=== PATIENT | female | born 1980 | race African-American/Black ===

== ENCOUNTER → 2017-07-09 | Outpatient (REF) | payer OTHER ==
[~2017-07-09] MED LIST: DITR1TAB PO; TYLE325T5 PO
[2017-07-09 19:48] LABS: BACTERIA, URINE SMALL AMOUNT; RBC, URINE 0-1 /hpf (0-3); SQUAMOUS EPITHELIAL CELL URINE SMALL AMOUNT /hpf (SMALL AMT)
[2017-07-09 19:51] LABS: HYALINE CAST, URINE NONE SEEN /lpf (0-1); MICROSCOPIC EXAM PERFORMED
== END ==
LOC: M SMT 16:57
PROVIDERS: ATTEND Specialist
DX: N39.41 Urge incontinence (principal)

== ENCOUNTER 2017-07-11 16:57 | Emergency (ER) | payer OTHER ==
[~2017-07-11] VITALS: Ht 167.6 cm; Wt 77.3 kg
[2017-07-11 16:58] VITALS: BP 142/77
[2017-07-11] MEDS ORDERED: DITR1TAB PO (17:24)
[2017-07-11] MEDS ORDERED: FLUORESCEIN OPHTH 1 MG STRIP OD ONE (17:45)
[2017-07-11] MEDS ORDERED: TETRACAINE 0.5% OPHTH SOLN 4ML OD ONE (17:45)
[2017-07-11] MEDS ORDERED: TYLE325T5 PO (18:16)
== END 2017-07-11 18:52 | disposition home or self-care (01) ==
LOC: M ED 16:57
DX: H11.31 Conjunctival hemorrhage, right eye (principal); N32.81 Overactive bladder; Z79.899 Other long term (current) drug therapy

== ENCOUNTER → 2017-10-06 | Outpatient (CLI) | payer OTHER ==
[2017-10-06 17:59] LABS: MEAN CORPUSCULAR HEMOGLOBIN 29.8 pg (27.0-33.0); MEAN CORPUSCULAR HGB CONC 33.3 g/dl (32.0-36.5); MEAN CORPUSCULAR VOLUME 89.3 fl (80.0-96.0); PLATELET COUNT, AUTOMATED 322 10^3/uL (150-450); RED BLOOD COUNT 4.03 10^6/uL (4.00-5.40); RED CELL DISTRIBUTION WIDTH 14.1 % (11.5-14.5)
[2017-10-06 18:00] LABS: CONTROL LINE UCG INT CTR LINE PRESENT; URINE PREG TEST NEGATIVE (NEGATIVE)
[2017-10-06 18:13] LABS: APPEARANCE, URINE HAZY (CLEAR); BACTERIA, URINE AUTO NEGATIVE (NEGATIVE); BILIRUBIN, URINE AUTO NEGATIVE (NEGATIVE); BLOOD, URINE BLOOD NEGATIVE (NEGATIVE); CALCIUM OXALATE CRYSTALS LARGE; COLOR, URINE YELLOW (YELLOW); GLUCOSE, URINE (UA) AUTO NEGATIVE (NEGATIVE); KETONE, URINE AUTO TRACE mg/dL (NEGATIVE); LEUKOCYTE ESTERASE, URINE AUTO NEGATIVE (NEGATIVE); MUCUS, URINE SMALL (NEGATIVE); NITRITE, URINE AUTO NEGATIVE (NEGATIVE); PROTEIN, URINE AUTO NEGATIVE (NEGATIVE); RBC, URINE AUTO 1 /HPF (0-3); SPECIFIC GRAVITY URINE AUTO 1.027 (1.002-1.035); SQUAMOUS EPITHELIAL CELL UR AU 0 /HPF (0-6); WBC, URINE AUTO 3 /HPF (0-3)
[2017-10-06 19:23] LABS: ALBUMIN 3.9 GM/DL (3.2-5.2); ALBUMIN/GLOBULIN RATIO 1.05 (1.00-1.93); ALKALINE PHOSPHATASE 78 U/L (45-117); ALT/SGPT 24 U/L (12-78); ANION GAP 7 MEQ/L (8-16); AST/SGOT 18 U/L (7-37); BILIRUBIN,TOTAL 0.5 MG/DL (0.2-1.0); BLOOD UREA NITROGEN 14 MG/DL (7-18); CALCIUM LEVEL 9.2 MG/DL (8.5-10.1); CARBON DIOXIDE LEVEL 30 MEQ/L (21-32); CHLORIDE LEVEL 105 MEQ/L (98-107); CREATININE FOR GFR 1.17 MG/DL (0.55-1.30); GLOMERULAR FILTRATION RATE > 60.0 (>60); GLUCOSE, FASTING 93 MG/DL (70-100); POTASSIUM SERUM 3.7 MEQ/L (3.5-5.1); SODIUM LEVEL 142 MEQ/L (136-145); TOTAL PROTEIN 7.6 GM/DL (6.4-8.2)
== END ==
LOC: M SMT 15:45
DX: Z01.818 Encounter for other preprocedural examination (principal); R30.1 Vesical tenesmus; R20.8 Other disturbances of skin sensation
CPT/HCPCS: 80053

== ENCOUNTER 2017-10-08 06:35 | Day surgery (SDC) | payer OTHER ==
[2017-10-08 07:02] LABS: CONTROL LINE UCG INT CTR LINE PRESENT; URINE PREG TEST NEGATIVE (NEGATIVE)
[2017-10-08] MEDS: LR 1,000 ML IV (07:05)
[2017-10-08] MEDS ORDERED: LIDOCAINE 2% INJ 100 MG/5 ML SDV (FOR ANES.) As Ordered (07:18)
[2017-10-08] MEDS ORDERED: fentaNYL 100 MCG/2 ML INJECTION (J3010) As Ordered (07:18)
[2017-10-08] MEDS ORDERED: PROPOFOL 200 MG/20 ML VIAL As Ordered ×2 (07:18→08:09)
[2017-10-08] MEDS ORDERED: MIDAZOLAM INJ 2 MG/2 ML VIAL (J2250) As Ordered (07:18)
[2017-10-08] MEDS ORDERED: ONDANSETRON 4MG/2ML VIAL (J2405) As Ordered (07:18)
[2017-10-08] MEDS ORDERED: dexameTHASONE 4 MG/ML 1ML VIAL (J1100) As Ordered (07:18)
[2017-10-08] MEDS: LIDOCAINE 2% 5ML JELLY UROJET As Ordered (07:20)
[2017-10-08] MEDS: LIDOCAINE 1% MDV 20ML VIAL As Ordered (07:36)
[2017-10-08] MEDS: LIDOCAINE 1% MDV INJ 50 ML VIAL As Ordered (07:40)
[2017-10-08] MEDS: BOTULINUM INJ 100 UNITS (J0585) As Ordered (07:56)
[2017-10-08] MEDS ORDERED: KETOROLAC 60 MG/2 ML VIAL (J1885) As Ordered (08:31)
[2017-10-08] MEDS ORDERED: LR 1,000 ML IV (09:00)
[2017-10-08] MEDS ORDERED: PERCOCET 5MG/325MG TAB PO (09:00)
[2017-10-08] MEDS ORDERED: ONDANSETRON 4MG/2ML VIAL (J2405) IV (09:00)
[2017-10-08] MEDS ORDERED: HYDROmorphone HCL 1 MG/ML SYRINGE (J1170) IV (09:00)
[2017-10-08] MEDS ORDERED: fentaNYL 100 MCG/2 ML INJECTION (J3010) IV (09:00)
== END 2017-10-08 11:30 | disposition home or self-care (01) ==
LOC: M SDC 06:35
DX: N30.11 Interstitial cystitis (chronic) with hematuria (principal); R35.0 Frequency of micturition; J45.909 Unspecified asthma, uncomplicated; G47.30 Sleep apnea, unspecified; Z79.51 Long term (current) use of inhaled steroids; Z79.899 Other long term (current) drug therapy
CPT/HCPCS: 52260

== ENCOUNTER 2017-10-14 09:00 | Emergency (ER) | payer OTHER ==
[2017-10-14] MEDS: ASPIRIN 81 MG CHEW TABLET PO (10:15)
[2017-10-14 10:43] LABS: BASO # 0.1 10^3/uL (0.0-0.2); EOS # 0.1 10^3/uL (0.0-0.50); IMMATURE GRANULOCYTE % 0.2 % (0-3.0); LYMPH # 1.9 10^3/uL (1.5-4.5); LYMPH % 37.5 % (24.0-44.0); MEAN CORPUSCULAR HEMOGLOBIN 29.7 pg (27.0-33.0); MEAN CORPUSCULAR HGB CONC 32.4 g/dl (32.0-36.5); MEAN CORPUSCULAR VOLUME 91.6 fl (80.0-96.0); MONO # 0.4 10^3/uL (0.0-0.8); NEUTROPHILS # 2.7 10^3/uL (1.8-7.7); NEUTROPHILS % 53.3 % (36.0-66.0); PLATELET COUNT, AUTOMATED 292 10^3/uL (150-450); RED BLOOD COUNT 4.04 10^6/uL (4.00-5.40); RED CELL DISTRIBUTION WIDTH 14.6 % (11.5-14.5); WHITE BLOOD COUNT 5.1 10^3/uL (4.0-10.0)
[2017-10-14 11:02] LABS: ALBUMIN 3.7 GM/DL (3.2-5.2); ALBUMIN/GLOBULIN RATIO 1.12 (1.00-1.93); ALKALINE PHOSPHATASE 68 U/L (45-117); ALT/SGPT 27 U/L (12-78); ANION GAP 5 MEQ/L (8-16); AST/SGOT 18 U/L (7-37); BILIRUBIN,DIRECT 0.1 MG/DL (0.0-0.2); BILIRUBIN,TOTAL 0.5 MG/DL (0.2-1.0); BLOOD UREA NITROGEN 10 MG/DL (7-18); CALCIUM LEVEL 8.5 MG/DL (8.5-10.1); CARBON DIOXIDE LEVEL 30 MEQ/L (21-32); CHLORIDE LEVEL 107 MEQ/L (98-107); CPK CREATINE PHOSPHOKINASE 141 U/L (26-192); GLOMERULAR FILTRATION RATE > 60.0 (>60); GLUCOSE, FASTING 80 MG/DL (70-100); NT-PRO BNP 92 PG/ML (<125); POTASSIUM SERUM 4.3 MEQ/L (3.5-5.1); SODIUM LEVEL 142 MEQ/L (136-145); TROPONIN I < 0.02 NG/ML (< 0.10)
[2017-10-14] MEDS ORDERED: ISOVUE-370 76% 100ML VIAL (Q9967) As Ordered (11:10)
[2017-10-14] MEDS: IPRATROPIUM 0.5MG/ALBUTEROL 2.5MG INH SOL UD 3ML (DUONEB)(J7620) NEB (12:00)
== END 2017-10-14 12:24 | disposition home or self-care (01) ==
LOC: M ED 09:00
DX: R07.9 Chest pain, unspecified (principal); R06.02 Shortness of breath; J45.909 Unspecified asthma, uncomplicated
CPT/HCPCS: Q9967

== ENCOUNTER 2019-01-26 08:09 | Outpatient (RCR) | payer OTHER ==
[~2019-01-26 08:09] MED LIST changes: +MACR100C43 PO; +OXYC1TAB23 PO; +PENT10CA; +VENTAER INH
== END 2019-01-29 ==
LOC: M PT 08:09
PROVIDERS: ATTEND Family Medicine
DX: R39.15 Urgency of urination (principal)

== ENCOUNTER 2019-02-17 08:00 | Outpatient (RCR) | payer OTHER | END 2019-03-01 | LOC: M PT 08:00 | PROVIDERS: ATTEND Family Medicine | DX: Z51.89 Encounter for other specified aftercare (principal); R39.15 Urgency of urination ==

== ENCOUNTER → 2020-04-29 | Outpatient (CLI) | payer OTHER ==
[2020-04-29 16:27] LABS: PLATELET COUNT, AUTOMATED 295 10^3/uL (150-450)
[2020-04-29 16:42] LABS: INR 1.03; PROTHROMBIN TIME 13.8 SECONDS (12.5-14.3)
[2020-04-29 16:43] LABS: PARTIAL THROMBOPLASTIN TIME 31.4 SECONDS (24.2-38.5)
[2020-04-29 16:48] LABS: HCG, SERUM QUALITATIVE NEGATIVE (NEGATIVE)
[2020-04-29 17:11] LABS: COLLAGEN EPINEPHRINE 149 SECONDS (74-162)
== END ==
LOC: M LAB 15:57
PROVIDERS: ATTEND Physician Assistant
DX: M47.812 Spondylosis without myelopathy or radiculopathy, cervical region (principal)

== ENCOUNTER → 2020-05-09 | Outpatient (REF) | payer OTHER ==
[2020-05-09 14:13] LABS: APPEARANCE, URINE CLEAR (CLEAR); BACTERIA, URINE AUTO NEGATIVE (NEGATIVE); BILIRUBIN, URINE AUTO NEGATIVE (NEGATIVE); BLOOD, URINE BLOOD NEGATIVE (NEGATIVE); COLOR, URINE YELLOW (YELLOW); GLUCOSE, URINE (UA) AUTO NEGATIVE (NEGATIVE); KETONE, URINE AUTO NEGATIVE (NEGATIVE); LEUKOCYTE ESTERASE, URINE AUTO NEGATIVE (NEGATIVE); NITRITE, URINE AUTO NEGATIVE (NEGATIVE); PROTEIN, URINE AUTO NEGATIVE (NEGATIVE); RBC, URINE AUTO 0 /HPF (0-3); SPECIFIC GRAVITY URINE AUTO 1.011 (1.002-1.035); SQUAMOUS EPITHELIAL CELL UR AU 1 /HPF (0-6); UROBILINOGEN, URINE AUTO 0.2 mg/dL (0.0-2.0); WBC, URINE AUTO 2 /HPF (0-3)
== END ==
LOC: M SMT 13:23
PROVIDERS: ATTEND Nurse Practitioner Family
DX: N39.41 Urge incontinence (principal)
CPT/HCPCS: 51798; 81001; 87086; G0463

== ENCOUNTER 2020-05-22 07:03 | Day surgery (SDC) | payer OTHER ==
[~2020-05-22] VITALS: Ht 167.6 cm; Wt 72.6 kg
[~2020-05-22 07:03] MED LIST changes: +BOTOX THERAPEUTIC 100 UNIT VIAL (J0585 PER 1 UNIT) XX ONE; +ceFAZolin SOD 2 GM in IV 1 EA IV ONE
[2020-05-22] MEDS ORDERED: LIDOCAINE 2% 100MG/5ML SDV (FOR ANES.) As Ordered ONE (07:56)
[2020-05-22] MEDS ORDERED: dexameTHASONE 4 MG/ML 1ML VIAL (J1100 PER 1MG) As Ordered ONE (07:56)
[2020-05-22] MEDS ORDERED: fentaNYL 100 MCG/2 ML INJECTION (J3010) As Ordered ONE (07:56)
[2020-05-22] MEDS ORDERED: ONDANSETRON 4MG/2ML VIAL As Ordered ONE (07:56)
[2020-05-22] MEDS ORDERED: propofoL 200 MG/20 ML VIAL As Ordered ONE (07:56)
[2020-05-22] MEDS ORDERED: MIDAZOLAM INJ 2MG/2ML VIAL (J2250 PER 1MG) As Ordered ONE (07:56)
[2020-05-22] MEDS ORDERED: BOTOX THERAPEUTIC 100 UNIT VIAL (J0585 PER 1 UNIT) As Ordered ONE (08:29)
[2020-05-22] MEDS ORDERED: LR 1,000 ML IV ONE (08:30)
[2020-05-22] MEDS ORDERED: LIDOCAINE 2% 5ML JELLY UROJET As Ordered ONE (08:30)
[2020-05-22] MEDS ORDERED: ACETAMINOPHEN 1000MG 100ML IV BTL (OFIRMEV) (J0131 PER 10MG) As Ordered ONE (08:53)
[2020-05-22] MEDS ORDERED: ONDANSETRON 4MG/2ML VIAL IV PRN (09:30)
[2020-05-22] MEDS ORDERED: oxyCODONE 5MG TAB PO PRN (09:30)
[2020-05-22] MEDS ORDERED: fentaNYL 100 MCG/2 ML INJECTION (J3010) IV PRN (09:30)
[2020-05-22] MEDS ORDERED: LR 1,000 ML IV SCH (09:30)
[2020-05-22 09:55] VITALS: BP 136/80
[2020-05-22] MEDS ORDERED: ACETAMINOPHEN TAB 650MG DOSE (2X325MG) PO PRN (10:30)
--- NOTE | 2020-05-22 14:22 | RO ---
DATE OF OPERATION: 05/22/2020 PREOPERATIVE DIAGNOSIS: Overactive bladder. POSTOPERATIVE DIAGNOSIS: Overactive bladder. PROCEDURE: Cystoscopy with bladder Botox injections. SURGEON: Lv Bradshaw MD ENT SURGEON: None. ANESTHESIA: MAC. OPERATIVE INDICATIONS: This is a 39-year-old female with overactive bladder and urge urinary incontinence. She has previously responded well to bladder Botox injections 100 units. She is brought back to the operating room today for another round of injections. DESCRIPTION OF PROCEDURE: The patient was brought to the operating room and MAC anesthesia was administered. Prophylactic antibiotics were infused. She was then placed in the dorsal lithotomy position and prepped and draped in usual sterile fashion. A rigid cystoscope was inserted into the urethral meatus and advanced into the bladder. The bladder was thoroughly examined and no abnormalities were seen. At this point a total of 100 units of Botox reconstituted in 10 mL of injectable saline was injected in several sites throughout the bladder. Approximately 20 sites were injected. Throughout the procedure I made sure not to inject directly into or on top of the ureteral orifices. Once done there was only a small amount of bleeding from injection sites. The bladder was emptied of all fluids and this marked the conclusion of the procedure. The patient was taken out of the dorsal lithotomy position, awakened from anesthesia and transported to the recovery room in stable condition. ESTIMATED BLOOD LOSS: 5 mL. COMPLICATIONS: None. SPECIMENS: None. PLAN: The patient will follow up in urology clinic in 2-3 weeks for postoperative visit to see how well the Botox is working for her. [facility]
== END 2020-05-22 10:20 | disposition home or self-care (01) ==
LOC: M SDC 07:03
PROVIDERS: ATTEND Urology
DX: N32.81 Overactive bladder (principal); N39.41 Urge incontinence; J45.909 Unspecified asthma, uncomplicated; G47.33 Obstructive sleep apnea (adult) (pediatric)
CPT/HCPCS: 52287; 81025; C1769; J0131; J0585; J0690; J1100; J2250; J2405; J3010

== ENCOUNTER 2020-12-03 12:59 | Emergency (ER) | payer OTHER ==
[~2020-12-03] VITALS: Ht 167.6 cm; Wt 75.0 kg
[~2020-12-03 12:59] MED LIST changes: -BOTOX THERAPEUTIC 100 UNIT VIAL (J0585 PER 1 UNIT) XX ONE; -ceFAZolin SOD 2 GM in IV 1 EA IV ONE
[2020-12-03] MEDS ORDERED: D31000TA2 PO (13:23)
[2020-12-03] MEDS ORDERED: METH36TA5 PO (13:23)
[2020-12-03] MEDS ORDERED: CYMB1CAP4 PO (13:23)
[2020-12-03] MEDS ORDERED: FLUO20CA22 PO (13:23)
[2020-12-03] MEDS ORDERED: DOXY100T PO (13:31)
[2020-12-03] MEDS ORDERED: TRAZ-257 PO (13:31)
[2020-12-03] MEDS ORDERED: AMIT25TA17 PO (13:31)
[2020-12-03] MEDS ORDERED: B-2100TA PO (13:31)
[2020-12-03] MEDS ORDERED: OMEG1CAP85 PO (13:31)
[2020-12-03] MEDS ORDERED: PRAZ1CAP PO (13:31)
[2020-12-03] MEDS ORDERED: TOPI50TA9 PO (13:31)
[2020-12-03] MEDS ORDERED: ASPIRIN 81 MG CHEW TABLET PO ONE (13:50)
[2020-12-03] MEDS ORDERED: NITROGLYCERIN 0.4 MG SUBL TABLET SL PRN (13:50)
[2020-12-03 14:38] LABS: BASO % 0.9 % (0.0-1.0); EOS % 0.2 % (0.0-3.0); HEMATOCRIT 38.5 % (36.0-47.0); HEMOGLOBIN 12.5 g/dl (12.0-15.5); LYMPH # 1.6 10^3/uL (1.5-5.0); LYMPH % 36.4 % (24.0-44.0); MEAN CORPUSCULAR HEMOGLOBIN 29.9 pg (27.0-33.0); MEAN CORPUSCULAR HGB CONC 32.5 g/dl (32.0-36.5); MEAN CORPUSCULAR VOLUME 92.1 fl (80.0-96.0); MONO # 0.3 10^3/uL (0.0-0.8); MONO % 5.8 % (2.0-8.0); NEUTROPHILS # 2.5 10^3/uL (1.5-8.5); NEUTROPHILS % 56.5 % (36.0-66.0); PLATELET COUNT, AUTOMATED 294 10^3/uL (150-450); RED BLOOD COUNT 4.18 10^6/uL (4.00-5.40); WHITE BLOOD COUNT 4.5 10^3/uL (4.0-10.0)
[2020-12-03 14:48] LABS: INR 1.02; PROTHROMBIN TIME 13.6 SECONDS (12.5-14.3)
[2020-12-03 14:49] VITALS: BP 138/74
[2020-12-03 14:52] LABS: D-DIMER QUANT 431.03 ng/ml (<500)
[2020-12-03 15:04] LABS: HCG, SERUM QUALITATIVE NEGATIVE (NEGATIVE)
[2020-12-03 15:13] LABS: ALBUMIN 4.2 GM/DL (3.2-5.2); ALT/SGPT 20 U/L (12-78); BILIRUBIN,DIRECT 0.1 MG/DL (0.0-0.2); BILIRUBIN,TOTAL 0.4 MG/DL (0.2-1.0); BLOOD UREA NITROGEN 8 MG/DL (7-18); CALCIUM LEVEL 9.5 MG/DL (8.5-10.1); CARBON DIOXIDE LEVEL 28 MEQ/L (21-32); CHLORIDE LEVEL 104 MEQ/L (98-107); CPK CREATINE PHOSPHOKINASE 214 U/L (26-192); CREATININE FOR GFR 0.79 MG/DL (0.55-1.30); FREE T4 0.82 NG/DL (0.76-1.46); GLOMERULAR FILTRATION RATE > 60.0 (>60); GLUCOSE, FASTING 92 MG/DL (70-100); LIPASE 45 U/L (73-393); MB/CK RELATIVE INDEX 0.47 (< OR =4); POTASSIUM SERUM 4.2 MEQ/L (3.5-5.1); SODIUM LEVEL 138 MEQ/L (136-145); THYROID STIMULATING HORMONE 0.687 uIU/ML (0.358-3.740); TOTAL PROTEIN 7.7 GM/DL (6.4-8.2); TROPONIN I < 0.02 NG/ML (< 0.10)
--- NOTE | 2020-12-03 15:29 | REP ---
INDICATION: CHEST PAIN. COMPARISON: Comparison chest x-ray October 14, 2017. TECHNIQUE: Two views.. FINDINGS: The lungs are well inflated and free of infiltrate. The pleural angles are sharp. The heart size is normal. Pulmonary vasculature is not increased. No significant bony abnormality is seen. EKG monitoring electrodes are present. IMPRESSION: Negative chest x-ray. <Electronically signed by Alex Leavitt > 12/03/20 1521
--- NOTE | 2020-12-03 17:54 | ECGEPIP ---
[facility] - ED Test Date: 2020-12-03 Pat Name: CASSIDY ALEJANDRA Department: Room: - Gender: Female [employer] Supervisor: stephanie : 1980 Requested By: Gabby Dumont Order Number: [id number] Reading MD: Gabby Dumont Measurements Intervals [place] Rate: 104 P: 78 HI: 112 QRS: 57 QRSD: 66 T: 55 QT: 328 QTc: 431 Interpretive Statements Sinus tachycardia nsttw abnormality decreased rate 10/14/17 Electronically Signed on 12-03-2020 17:53:52 EDT by Gabby Dumont
[2020-12-03 19:59] LABS: CK-MB VALUE MASS < 1.0 NG/ML (<3.6); CPK CREATINE PHOSPHOKINASE 187 U/L (26-192); MB/CK RELATIVE INDEX 0.53 (< OR =4); TROPONIN I < 0.02 NG/ML (< 0.10)
[2020-12-03 20:45] VITALS: BP 154/74
--- NOTE | 2020-12-04 20:19 | ECGEPIP ---
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
== END 2020-12-03 21:10 | disposition home or self-care (01) ==
LOC: M ED 12:59
DX: R07.9 Chest pain, unspecified (principal); F90.9 Attention-deficit hyperactivity disorder, unspecified type; E53.9 Vitamin B deficiency, unspecified; G43.909 Migraine, unspecified, not intractable, without status migrainosus; G89.29 Other chronic pain; R32 Unspecified urinary incontinence; Z79.899 Other long term (current) drug therapy

== ENCOUNTER 2021-06-06 10:33 | Day surgery (SDC) | payer OTHER ==
[~2021-06-06] VITALS: Ht 167.6 cm; Wt 70.8 kg
[~2021-06-06 10:33] MED LIST changes: +AMIT25TA17 PO; +B-2100TA PO; +CYMB1CAP4 PO; +D31000TA2 PO; +DOXY100T PO; +FLUO20CA22 PO; +FLUO5OIL TD; +LIDOCAINE 2% 100MG/5ML SDV (FOR ANES.) As Ordered ONE; +METH36TA5 PO; +NS 1,000 ML IV ONE; +OMEG1CAP85 PO; +PRAZ1CAP PO; +TOPI50TA9 PO; +TRAZ-257 PO; +VANI1CRE5 TOP; +fentaNYL 100 MCG/2 ML INJECTION (J3010) As Ordered ONE; +propofoL 200 MG/20 ML VIAL As Ordered ONE
--- NOTE | 2021-06-06 13:17 | ROOR ---
Patient Name: Brooklyn Martin Procedure Date: 06/06/2021 12:19 PM Date of : 1980 Age: 40 Room: [facility] Gender: Female Note Status: Finalized Procedure: Upper GI endoscopy Indications: Epigastric abdominal pain, Follow-up of Helicobacter pylori Providers: Chas Brock MD Referring MD: DARREN BANKS MD Requesting Provider: Medicines: Monitored Anesthesia Care Complications: No immediate complications. Procedure: Pre-Anesthesia Assessment: - Prior to the procedure, a History and Physical was performed, and patient medications and allergies were reviewed. The patient is competent. The risks and benefits of the procedure and the sedation options and risks were discussed with the patient. All questions were answered and informed consent was obtained. Patient identification and proposed procedure were verified by the physician, the nurse and the anesthesiologist in the procedure room. Mental Status Examination: alert and oriented. Airway Examination: normal oropharyngeal airway and neck mobility. Respiratory Examination: clear to auscultation. CV Examination: normal. Prophylactic Antibiotics: The patient does not require prophylactic antibiotics. Prior Anticoagulants: The patient has taken no previous anticoagulant or antiplatelet agents. ASA Grade Assessment: II - A patient with mild systemic disease. After reviewing the risks and benefits, the patient was deemed in satisfactory condition to undergo the procedure. The anesthesia plan was to use monitored anesthesia care (MAC). Immediately prior to administration of medications, the patient was re-assessed for adequacy to receive sedatives. The heart rate, respiratory rate, oxygen saturations, blood pressure, adequacy of pulmonary ventilation, and response to care were monitored throughout the procedure. The physical status of the patient was re-assessed after the procedure. The Endoscope was introduced through the mouth, and advanced to the second part of duodenum. The upper GI endoscopy was accomplished without difficulty. The patient tolerated the procedure well. Findings: The examined esophagus was normal. The Z-line was regular and was found at the gastroesophageal junction. Scattered moderate inflammation characterized by congestion (edema), erythema and granularity was found in the gastric antrum. Biopsies were taken with a cold forceps for histology. Verification of patient identification for the specimen was done by the physician and nurse using the patient's name, date and medical record number. Estimated blood loss was minimal. The duodenal bulb, second portion of the duodenum and third portion of the duodenum were normal. Biopsies for histology were taken with a cold forceps for evaluation of celiac disease. Impression: - Normal esophagus. - Z-line regular, at the gastroesophageal junction. - Gastritis. Biopsied. - Normal duodenal bulb, second portion of the duodenum and third portion of the duodenum. Biopsied. Recommendation: - Patient has a contact number available for emergencies. The signs and symptoms of potential delayed complications were discussed with the patient. Return to normal activities tomorrow. Written discharge instructions were provided to the patient. - High fiber diet. - Continue present medications. - Await pathology results. - Follow an antireflux regimen. - Telephone GI clinic for pathology results in 2 weeks. - Return to GI clinic if persistent symptoms or new symptoms. - Return to primary care physician. Procedure Code(s): --- Professional --- 97685, Esophagogastroduodenoscopy, flexible, transoral; with biopsy, single or multiple Diagnosis Code(s): --- Professional --- K29.70, Gastritis, unspecified, without bleeding R10.13, Epigastric pain B96.81, Helicobacter pylori [H. pylori] as the cause of diseases classified elsewhere CPT copyright 2019 [employer]. All rights reserved. The codes documented in this report are preliminary and upon farm management teacher review may be revised to meet current compliance requirements. Chas Brock MD Chas Brock MD 06/06/2021 1:16:45 PM Electronically signed by Chas Brock MD Number of Addenda: 0 Note Initiated On: 06/06/2021 12:19 PM Estimated Blood Loss: Estimated blood loss was minimal.
--- NOTE | 2021-06-06 13:33 | ROOR ---
Patient Name: Brooklyn Martin Procedure Date: 06/06/2021 12:20 PM Date of : 1980 Age: 40 Room: [facility] Gender: Female Note Status: Finalized Procedure: Colonoscopy Indications: Hematochezia, Change in bowel habits Providers: Chas Brock MD Referring MD: DARREN BANKS MD Requesting Provider: Medicines: Monitored Anesthesia Care Complications: No immediate complications. Procedure: Pre-Anesthesia Assessment: - Prior to the procedure, a History and Physical was performed, and patient medications and allergies were reviewed. The patient is competent. The risks and benefits of the procedure and the sedation options and risks were discussed with the patient. All questions were answered and informed consent was obtained. Patient identification and proposed procedure were verified by the physician, the nurse and the anesthesiologist in the procedure room. Mental Status Examination: alert and oriented. Airway Examination: normal oropharyngeal airway and neck mobility. Respiratory Examination: clear to auscultation. CV Examination: normal. Prophylactic Antibiotics: The patient does not require prophylactic antibiotics. Prior Anticoagulants: The patient has taken no previous anticoagulant or antiplatelet agents. ASA Grade Assessment: II - A patient with mild systemic disease. After reviewing the risks and benefits, the patient was deemed in satisfactory condition to undergo the procedure. The anesthesia plan was to use monitored anesthesia care (MAC). Immediately prior to administration of medications, the patient was re-assessed for adequacy to receive sedatives. The heart rate, respiratory rate, oxygen saturations, blood pressure, adequacy of pulmonary ventilation, and response to care were monitored throughout the procedure. The physical status of the patient was re-assessed after the procedure. The Colonoscope was introduced through the anus and advanced to the terminal ileum, with identification of the appendiceal orifice and IC valve. The colonoscopy was performed without difficulty. The patient tolerated the procedure well. The quality of the bowel preparation was good. The terminal ileum, ileocecal valve, appendiceal orifice, and rectum were photographed. Scope insertion time was 2 minutes. Scope withdrawal time was 8 minutes. The total duration of the procedure was 12 minutes. Findings: The perianal and digital rectal examinations were normal. The terminal ileum appeared normal. The colon (entire examined portion) was significantly tortuous. Advancing the scope required applying abdominal pressure. Normal mucosa was found in the entire colon. Non-bleeding external and internal hemorrhoids were found during retroflexion. The hemorrhoids were medium-sized. No other significant abnormalities were identified in a careful examination of the remainder of the colon. Impression: - The examined portion of the ileum was normal. - Tortuous colon. - Normal mucosa in the entire examined colon. - Non-bleeding external and internal hemorrhoids. - No specimens collected. Recommendation: - Patient has a contact number available for emergencies. The signs and symptoms of potential delayed complications were discussed with the patient. Return to normal activities tomorrow. Written discharge instructions were provided to the patient. - High fiber diet. - Continue present medications. - Use fiber, for example Citrucel, Fibercon, Konsyl or Metamucil. - Repeat colonoscopy in 10 years for screening purposes. - Return to primary care physician. Procedure Code(s): --- Professional --- 07077, Colonoscopy, flexible; diagnostic, including collection of specimen(s) by brushing or washing, when performed (separate procedure) Diagnosis Code(s): --- Professional --- K64.8, Other hemorrhoids K92.1, Melena (includes Hematochezia) R19.4, Change in bowel habit Q43.8, Other specified congenital malformations of intestine CPT copyright 2019 [employer]. All rights reserved. The codes documented in this report are preliminary and upon phonograph needle tip maker review may be revised to meet current compliance requirements. Chas Brock MD Chas Brock MD 06/06/2021 1:32:51 PM Electronically signed by Chas Brock MD Number of Addenda: 0 Note Initiated On: 06/06/2021 12:20 PM Estimated Blood Loss: Estimated blood loss: none.
[2021-06-06 13:41] VITALS: BP 138/89
== END 2021-06-06 14:01 | disposition home or self-care (01) ==
LOC: M OPP 10:33
PROVIDERS: ATTEND Internal Medicine Gastroenterology
DX: K29.70 Gastritis, unspecified, without bleeding (principal); B96.81 Helicobacter pylori [H. pylori] as the cause of diseases classified elsewhere; R10.13 Epigastric pain; K64.8 Other hemorrhoids; K92.1 Melena; R19.4 Change in bowel habit; Q43.8 Other specified congenital malformations of intestine; G47.30 Sleep apnea, unspecified; G43.909 Migraine, unspecified, not intractable, without status migrainosus; Z79.899 Other long term (current) drug therapy
CPT/HCPCS: 43239; 45378; 88305; J3010

== ENCOUNTER → 2021-09-05 | Outpatient (CLI) | payer OTHER ==
[~2021-09-05] MED LIST changes: +GASTROGRAFIN SOLUTION 30ML (Q9963) As Ordered ONE; +ISOVUE-370 76% 100ML VIAL As Ordered ONE; -LIDOCAINE 2% 100MG/5ML SDV (FOR ANES.) As Ordered ONE; -NS 1,000 ML IV ONE; -fentaNYL 100 MCG/2 ML INJECTION (J3010) As Ordered ONE; -propofoL 200 MG/20 ML VIAL As Ordered ONE
== END ==
LOC: M RAD 10:00
PROVIDERS: ATTEND Internal Medicine Gastroenterology
DX: R63.4 Abnormal weight loss (principal)
CPT/HCPCS: 74170; Q9963; Q9967

== ENCOUNTER → 2021-10-17 | Outpatient (CLI) | payer OTHER ==
[~2021-10-17] MED LIST changes: -D31000TA2 PO; -GASTROGRAFIN SOLUTION 30ML (Q9963) As Ordered ONE; -ISOVUE-370 76% 100ML VIAL As Ordered ONE; +VITA100093 PO
[2021-10-17 12:33] LABS: PLATELET COUNT, AUTOMATED 321 10^3/uL (150-450)
[2021-10-17 12:44] LABS: INR 1.02; PROTHROMBIN TIME 13.8 SECONDS (12.7-14.5)
[2021-10-17 12:45] LABS: PARTIAL THROMBOPLASTIN TIME 31.5 SECONDS (25.9-37.0)
[2021-10-17 13:03] LABS: HCG, SERUM QUALITATIVE NEGATIVE (NEGATIVE)
== END ==
LOC: M LAB 11:10
PROVIDERS: ATTEND Physical Medicine & Rehabilitation
DX: M47.892 Other spondylosis, cervical region (principal)